=== PATIENT | male | born 1960 | race Caucasian/White ===

== ENCOUNTER 2021-04-30 07:03 | Day surgery (SDC) | payer OTHER ==
[2021-04-24 15:42] LABS: BASOPHILS # (AUTO) 0.1 X10'3 (0-0.2); BASOPHILS % (AUTO) 0.8 % (0-1); EOSINOPHILS # (AUTO) 0.3 X10'3 (0-0.9); EOSINOPHILS % (AUTO) 4.1 % (0-6); LYMPHOCYTES # (AUTO) 1.6 X10'3 (1.1-4.8); LYMPHOCYTES % (AUTO) 21.2 % (21-51); MEAN CORPUSCULAR HEMOGLOBIN 33.5 PG (27.0-31.0); MEAN CORPUSCULAR HGB CONC 34.3 g/dL (33.0-36.5); MEAN CORPUSCULAR VOLUME 97.8 FL (78-98); MEAN PLATELET VOLUME 8.1 FL (7.4-10.4); MONOCYTES # (AUTO) 0.6 X10'3 (0-0.9); MONOCYTES % (AUTO) 7.6 % (2-12); NEUTROPHILS # (AUTO) 4.9 X10'3 (1.8-7.7); NEUTROPHILS % (AUTO) 66.3 % (42-75); PRE OP HEMATOCRIT 45.4 % (42.0-52.0); PRE OP HEMOGLOBIN 15.6 g/dL (14.0-17.9); PRE OP PLATELET COUNT 251 X10'3 (140-440); RED BLOOD COUNT 4.64 X10'6 (4.70-6.10); RED CELL DISTRIBUTION WIDTH 12.5 % (11.5-14.5)
[2021-04-24 16:30] LABS: ALBUMIN 3.6 G/DL (3.4-5.0); ALBUMIN/GLOBULIN RATIO 1.1 (1.1-1.5); BLOOD UREA NITROGEN 22 MG/DL (7-18); BUN/CREATININE RATIO 19.3 (5.4-32.0); CALCIUM 8.9 MG/DL (8.5-10.1); CHLORIDE 107 MMOL/L (99-107); CREATININE 1.14 MG/DL (0.60-1.10); PRE OP ALT 53 U/L (30-65); PRE OP ANION GAP 7 (8-16); PRE OP AST 35 U/L (10-37); PRE OP BILIRUB, TOTAL 0.2 MG/DL (0.0-1.0); PRE OP GLUCOSE 119 MG/DL (70-104); PRE OP POTASSIUM 3.9 MMOL/L (3.4-5.1); PRE OP SODIUM 144 MMOL/L (135-145); TOTAL CARBON DIOXIDE 29.6 MMOL/L (24-32); TOTAL PROTEIN 6.9 G/DL (6.4-8.2); eGFR 65 ML/MIN
[~2021-04-30] VITALS: Ht 177.8 cm; Wt 81.2 kg
[~2021-04-30 07:03] MED LIST: AMLO5TAB16 PO; LISI20TA28 PO; cefazolin/dext.iso 2gm/50ml IV ONE; famotidine 20mg tablet PO ONE; ringers solution, lacted 1,000 ML IV SCH
[2021-04-30 08:22] VITALS: BP 154/81
[2021-04-30 08:27] VITALS: BP 154/81
[2021-04-30] MEDS ORDERED: scopolamine 1mg/72 hr patch TD ONE (09:03)
[2021-04-30] MEDS ORDERED: sevoflurane 250ml liquid IH ONE (09:04)
[2021-04-30] MEDS ORDERED: FENTANYL CITRATE/PF 50 MCG/1 ML VIAL ONE ×3 (09:07→09:08)
[2021-04-30] MEDS ORDERED: midazolam 1 mg/ML 2ml injection ONE (09:07)
[2021-04-30] MEDS ORDERED: BUPIVAcaine 0.5% inj/PF 30 ML ONE (09:41)
[2021-04-30] MEDS ORDERED: triamcinolone acetonide 40mg/ml inj ONE ×2 (09:41→09:55)
[2021-04-30] MEDS ORDERED: meperidine/PF 25mg/ml syringe IV PRN ×3 (10:00)
[2021-04-30] MEDS ORDERED: morphine 2 MG/ML inj. syringe IV PRN (10:00)
[2021-04-30] MEDS ORDERED: morphine 4 MG/ML inj SYRINge IV PRN (10:00)
[2021-04-30] MEDS ORDERED: proCHLORperazine 10 MG/2 ml inj IV PRN (10:00)
[2021-04-30] MEDS ORDERED: ondansetron/PF 4mg/2ml inj IV PRN (10:00)
[2021-04-30] MEDS ORDERED: ringers solution, lacted 1,000 ML IV SCH (10:00)
[2021-04-30] MEDS ORDERED: dexamethasone sod phosphate 4mg/ml inj. ONE (10:21)
[2021-04-30] MEDS ORDERED: ondansetron/PF 4mg/2ml inj ONE (10:21)
[2021-04-30] MEDS ORDERED: propofol inj 20 ML IV ONE (10:21)
[2021-04-30] MEDS ORDERED: acetaminophen 1,000mg/100ml IV 100 ML IV ONE (10:27)
[2021-04-30 10:41] VITALS: BP 120/74
--- NOTE | 2021-04-30 10:41 | NUR ---
Received from OR via [facility] IN STABLE CONDTION AND LMA STILL IN PLACE , accompanied by Anesthesiologist and ECHO TECHNICIAN report given by ECHO TECHNICIAN AND Anesthesiolgist. Addendum: 04/30/21 at 1058 by Narda Cantor RN Amended: Links added.
--- NOTE | 2021-04-30 10:46 | NUR ---
LMA REMOVED. Addendum: 04/30/21 at 1100 by Narda Cantor RN Amended: Links added.
[2021-04-30 10:50] VITALS: BP 125/75
[2021-04-30 11:00] VITALS: BP 116/58
[2021-04-30 11:10] VITALS: BP 139/96
--- NOTE | 2021-04-30 11:51 | NUR ---
PATIENT DISCHARGED FROM PACU IN STABLE CONDITION AFTER WRITTEN AND VERBAL DISCHARGE INSTRUCTIONS GIVEN. PATIENT GAVE VERBAL UNDERSTANDING OF INSTRUCTIONS GIVEN. PATIENT LEFT FACILITY VIA WHEELCHAIR WITH RN. Addendum: 04/30/21 at 1201 by Narda Cantor RN Amended: Links added.
== END 2021-04-30 11:51 | disposition home or self-care (01) ==
LOC: PAS 07:03
PROVIDERS: ATTEND Orthopaedic Surgery
DX: S83.232A Complex tear of medial meniscus, current injury, left knee, initial encounter (principal); S83.282A Other tear of lateral meniscus, current injury, left knee, initial encounter; S83.241A Other tear of medial meniscus, current injury, right knee, initial encounter; S83.281A Other tear of lateral meniscus, current injury, right knee, initial encounter; M94.261 Chondromalacia, right knee; M94.262 Chondromalacia, left knee; I10 Essential (primary) hypertension; Z20.822 Contact with and (suspected) exposure to COVID-19; Z79.899 Other long term (current) drug therapy; E66.8 Other obesity; Z68.25 Body mass index [BMI] 25.0-25.9, adult; Z72.89 Other problems related to lifestyle; Z98.890 Other specified postprocedural states; Z81.8 Family history of other mental and behavioral disorders; Z82.3 Family history of stroke; X58.XXXA Exposure to other specified factors, initial encounter; Y93.89 Activity, other specified; Y92.89 Other specified places as the place of occurrence of the external cause; Y99.8 Other external cause status
CPT/HCPCS: 29873; 29879; 29880; 36415; 80053; 82948; 85025; J0131; J0690; J1100; J2250; J2405; J2704; J3010; J3301; J7120; S0020; U0003; U0005; Z7506; Z7508; Z7512; A4215; A4618; A6250; A6449; A7000